=== PATIENT | female | born 1985 | race Caucasian/White ===

== ENCOUNTER 2016-08-30 15:03 | Inpatient (IN) | payer BC ==
[~2016-08-30] VITALS: Ht 177.8 cm; Wt 122.5 kg
[2016-08-30] MEDS: LACTATED RINGER'S 1000 ML INJ 1,000 ML IV SCH (13:04)
[2016-08-30] MEDS ORDERED: LACTATED RINGER'S 1000 ML IV SCH (16:15)
[2016-08-30] MEDS ORDERED: ceFAZolin 2 GM PREMIX 50 ML IV SCH (16:15)
[2016-08-30] MEDS ORDERED: CITRIC ACID-SODIUM CITRATE LIQ 30 ML UDC PO SCH (16:15)
[2016-08-30] MEDS ORDERED: LACTATED RINGER'S 1000 ML IV ONE (16:15)
[2016-08-30 16:20] LABS: AUTOMATED NEUTROPHIL # 6.8 TH/MM3 (1.8-7.7); BASOPHIL % 0.3 % (0.0-2.0); EOSINOPHIL # 0.1 TH/MM3 (0-0.4); EOSINOPHIL % 0.6 % (0.0-4.0); HEMATOCRIT 34.4 % (35.0-46.0); HEMO FLAGS DIFF FINAL; LYMPHOCYTE # 2.1 TH/MM3 (1.0-4.8); MEAN CORPUSCULAR HEMOGLOBIN 29.3 PG (27.0-34.0); MEAN CORPUSCULAR HGB CONC 34.1 % (32.0-36.0); MONO % 6.9 % (0.0-8.0); NEUT % 70.2 % (16.0-70.0); PLATELET COUNT 218 TH/MM3 (150-450); RED BLOOD COUNT 3.99 MIL/MM3 (4.00-5.30); RED CELL DISTRIBUTION WIDTH 15.3 % (11.6-17.2); WHITE BLOOD COUNT 9.7 TH/MM3 (4.0-11.0)
[2016-08-30 16:22] LABS: BACTERIA, URINE RARE /hpf; BLOOD, URINE NEG (NEG); COMMENT (UR) CULT NOT INDICATED; CULTURE IF INDICATED CULT NOT INDICATED; GLUCOSE,URINE NEG (NEG); KETONE, URINE 40 mg/dL (NEG); NITRITE,URINE NEG (NEG); SQUAMOUS EPITHELIAL CELL URINE 1 /hpf (0-5); URINE COLOR YELLOW (YELLW/STRAW)
[2016-08-30] MEDS ORDERED: OXYTOCIN 10 UNIT/ML AMP ONE (16:46)
[2016-08-30] MEDS ORDERED: ACETAMINOPHEN 1000 MG/100 ML VIAL IV ONE (16:46)
[2016-08-30] MEDS ORDERED: SODIUM CHLORIDE 0.9% FLUSH 5 ML FLUSH IV PRN (17:00)
[2016-08-30] MEDS ORDERED: KETOROLAC TROMETHAMINE 60 MG/2 ML (IM) VIAL IM PRN ×2 (17:00→23:00)
[2016-08-30] MEDS ORDERED: ONDANSETRON HCL 4 MG/2 ML VIAL IVP PRN (17:00)
[2016-08-30] MEDS ORDERED: OXYTOCIN 30 UNITS-500ML PREMIX 500 ML IV ONE (17:00)
[2016-08-30] MEDS: ACETAMINOPHEN 1000 MG/100 ML VIAL IV SCH (17:00)
[2016-08-30] MEDS ORDERED: oxyCODONE/ACETAMINOPHEN 5 MG/325 MG TAB PO PRN (17:00)
[2016-08-30] MEDS ORDERED: MEASLES, MUMPS, RUBELLA VACCINE 0.5 ML VIAL SQ ONE (17:00)
[2016-08-30] MEDS ORDERED: MORPHINE SULFATE PF 5 MG/10 ML VIAL ONE (18:03)
[2016-08-30] MEDS ORDERED: ONDANSETRON HCL 4 MG/2 ML VIAL ONE (18:03)
[2016-08-30] MEDS ORDERED: OXYTOCIN 30 UNITS-500ML PREMIX 500 ML IV PRN (18:15)
[2016-08-30] MEDS ORDERED: diphenhydrAMINE HCL 50 MG/ML VIAL ONE (18:17)
[2016-08-30] MEDS ORDERED: OXYTOCIN 30 UNITS-500ML PREMIX 500 ML ONE (19:03)
[2016-08-30] MEDS ORDERED: EPIDURAL-DIPHENHYDRAMINE HCL 50 MG CAP PO PRN (20:00)
[2016-08-30] MEDS ORDERED: EPIDURAL-NALOXONE HCL 0.4 MG/ML AMP IV PRN (20:00)
[2016-08-30] MEDS ORDERED: EPIDURAL-NO SYSTEMIC NARCOTICS XX PRN (20:00)
[2016-08-30] MEDS ORDERED: EPIDURAL-DO NOT ADMINISTER ANTICOAGULANTS XX PRN (20:00)
[2016-08-30] MEDS ORDERED: EPIDURAL-DIPHENHYDRAMINE HCL 50 MG/ML VIAL IV PUSH PRN (20:00)
--- NOTE | 2016-08-30 21:26 | MP ---
cc: AJAY PINEDA M.D. DATE OF SURGERY 08/30/2016 PREOPERATIVE DIAGNOSES 1. at 40-41 weeks. 2. macrosomia. POSTOPERATIVE DIAGNOSES 1. at 40-41 weeks. 2. macrosomia. 3. Occiput posterior. 4. Delivered. PROCEDURE Primary low transverse section. ANESTHESIA Spinal SURGEON Ajay Pineda MD CHOIR MEMBER RAJAT Amador ESTIMATED BLOOD LOSS FOR THE PROCEDURE 600 cc. FLUIDS 2.3 liters crystalloid. OBJECTIVE FINDINGS Following induction of adequate spinal anesthesia, the patient was prepped and draped supine on the operating table, left lateral tilt position in the usual sterile fashion with the bladder being drained via Blackmon catheterization. The abdomen was opened through a Pfannenstiel incision using knife to cut down through the skin to the fascia. The fascia opened transversely, stripped the muscles, rectus muscle split in the midline. Perineum opened sharply with scissors. The bladder flap taken down sharply, retracted with Dorothy blade. The lower uterine segment was incised transversely with a knife, extended with blunt dissection. Revealed clear fluid. The baby was OP position. The head was laterally rotated, the vacuum applied to the occiput and used to lift the head through the abdominal wound. Mouth was suctioned, cord clamped and cut and baby passed to awaiting NB team. A viable, vigorous female. Apgars 8 and 9. weight 7 pounds 11 ounces. Cord blood for typing. The placenta manually removed. Uterine cavity cleaned with laps. Uterus exteriorized and closed in two layers with running suture, first a running locking stitch of Vicryl and the second running imbricating stitch of Vicryl. Posterior inspection revealed the uterus, tubes and ovaries normal. Uterus now placed in cavity. Irrigation performed. No bleeding was evident. The bladder flap was closed with a running stitch of 3-0 Vicryl. All lap structures removed. Counts were correct. The anterior peritoneum closed with a running stitch of 2-0 Vicryl. Fascia closed with running locking stitch of 0 Vicryl corner to midline and tied, subcu with running 3-0 Vicryl and the skin with running subcuticular 3-0 Monocryl. Dermabond applied. All counts were correct and the patient was awake and taken to recovery room in good condition. MD SU Anaya /5:50 PM /9:12 PM MTDMaite
[2016-08-30] MEDS: ZOLPIDEM TARTRATE 5 MG TAB PO PRN (22:47)
[2016-08-31] MEDS: SIMETHICONE 80 MG CHEWABLE TAB PO PRN ×2 (00:18→09:42)
[2016-08-31] MEDS: ACETAMINOPHEN 1000 MG/100 ML VIAL IV SCH ×2 (01:08→09:00)
[2016-08-31] MEDS: LACTATED RINGER'S 1000 ML INJ 1,000 ML IV SCH (01:12)
[2016-08-31] MEDS: oxyCODONE/ACETAMINOPHEN 5 MG/325 MG TAB PO PRN ×4 (01:43→21:33)
[2016-08-31 04:29] LABS: AUTOMATED NEUTROPHIL # 5.7 TH/MM3 (1.8-7.7); BASOPHIL % 0.2 % (0.0-2.0); EOSINOPHIL # 0.1 TH/MM3 (0-0.4); EOSINOPHIL % 0.8 % (0.0-4.0); HEMATOCRIT 28.2 % (35.0-46.0); HEMO FLAGS DIFF FINAL; LYMPH % 22.2 % (9.0-44.0); LYMPHOCYTE # 1.8 TH/MM3 (1.0-4.8); MEAN CELL VOLUME 86.4 FL (80.0-100.0); MEAN CORPUSCULAR HEMOGLOBIN 29.8 PG (27.0-34.0); MEAN CORPUSCULAR HGB CONC 34.5 % (32.0-36.0); MONO % 7.3 % (0.0-8.0); NEUT % 69.5 % (16.0-70.0); PLATELET COUNT 150 TH/MM3 (150-450); RED BLOOD COUNT 3.26 MIL/MM3 (4.00-5.30); RED CELL DISTRIBUTION WIDTH 15.2 % (11.6-17.2); WHITE BLOOD COUNT 8.2 TH/MM3 (4.0-11.0)
[2016-08-31 04:55] LABS: BICARBONATE 21.9 MEQ/L (21.0-32.0); POTASSIUM 3.4 MEQ/L (3.5-5.1)
--- NOTE | 2016-08-31 08:36 | MH ---
cc: AJAY PINEDA DATE OF ADMISSION: 08/30/2016 ADMITTING DIAGNOSIS 1. at 40-41 weeks. 2. macrosomia. HISTORY OF PRESENT ILLNESS The patient is a 31-year-old single white female, para 0-0-1-0, LMP of 11/15/2015, EDC of 08/29/2016 by dates, 08/28/2016 by early ultrasound. Her course has been benign. Ultrasound on the day admission showed EFW over 4000 grams, vertex is high, cervix is closed, and patient is now admitted for primary . PAST MEDICAL HISTORY PREVIOUS SURGERY 1. Laparoscopic cholecystectomy at age 24. 2. LEEP procedure in 2004. 3. 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 MEDICATIONS Vitamins. ALLERGIES None. TRANSFUSIONS None. SOCIAL HISTORY She is single, works in [employer] at [employer]. Alcohol, tobacco and drugs are none. FAMILY HISTORY Noncontributory. PHYSICAL EXAMINATION GENERAL: A well-nourished, well-developed gravid white female. VITAL SIGNS: Stable. HEENT: Exam is normal. CHEST: Clear. HEART: Regular rate. BREASTS: Symmetrical. ABDOMEN: Gravid. EFW about 4200 grams. PELVIC: Cervix is long, thick and closed. Vertex ballottable. EXTREMITIES: 1+ edema. ASSESSMENT As above. PLAN She is now admitted for primary . While in the office I explained the procedure, the risks, benefits and complications and the patient elected to proceed. MD FLORECITA Anaya/ROSA /1:59 PM /8:32 AM
[2016-08-31] MEDS: SODIUM CHLORIDE 0.9% FLUSH 5 ML FLUSH IV SCH ×2 (09:00→21:33)
[2016-08-31] MEDS: KETOROLAC TROMETHAMINE 30 MG/ML (IVP) VIAL IV PUSH PRN ×3 (09:42→21:32)
[2016-08-31] MEDS: DOCUSATE SODIUM 50 MG/SENNA 8.6 MG TAB PO PRN (15:33)
[2016-08-31] MEDS: ZOLPIDEM TARTRATE 5 MG TAB PO PRN (21:36)
[2016-09-01] MEDS: oxyCODONE/ACETAMINOPHEN 5 MG/325 MG TAB PO PRN ×4 (03:05→21:48)
[2016-09-01] MEDS: DOCUSATE SODIUM 50 MG/SENNA 8.6 MG TAB PO PRN ×2 (03:05→15:55)
[2016-09-01] MEDS: IBUPROFEN 600 MG TAB PO PRN ×4 (03:05→21:48)
[2016-09-01] MEDS ORDERED: DIPHTH/TETANUS/ACEL PERTUSSIS (BOOSTER) 0.5 ML VIAL/PFS IM ONE (09:00)
[2016-09-01] MEDS: SIMETHICONE 80 MG CHEWABLE TAB PO PRN (10:02)
[2016-09-01 20:00] VITALS: BP 136/91; PULSE 91; RESP 18; TEMP 97.7
[2016-09-01] MEDS: SODIUM CHLORIDE 0.9% FLUSH 5 ML FLUSH IV SCH (21:00)
[2016-09-01] MEDS: ZOLPIDEM TARTRATE 5 MG TAB PO PRN (21:48)
[2016-09-02] MEDS: oxyCODONE/ACETAMINOPHEN 5 MG/325 MG TAB PO PRN ×2 (03:57→08:20)
[2016-09-02] MEDS: IBUPROFEN 600 MG TAB PO PRN (03:58)
[2016-09-02] MEDS ORDERED: OXYC1TAB63 PO (08:23)
--- NOTE | 2016-09-02 08:23 | HHI.DCPOC ---
Discharge Care Plan Report Symptoms to Your Doctor -Temperate above 100.5 degrees -Redness, of incision or excessive or foul smelling drainage -Unusual pain or calf pain -Increased vaginal bleeding -Painful or difficulty urinating -Feelings of extreme sadness or anxiety after 2 weeks Goals to Promote Your Health * To prevent worsening of your condition and complications * To maintain your health at the optimal level Directions to Meet Your Goals Take your medications as prescribed Follow your dietary instruction Follow activity as directed Ensure plenty of rest for recovery Drink fluids for hydration Keep your appointments as scheduled Take your immunizations and boosters as scheduled If your symptoms worsen call your PCP, if no PCP go to Urgent Care Center or Emergency Room Smoking is Dangerous to Your Health. Avoid second hand smoke Call the 24-hour crisis hotline for domestic abuse at Jhonny Harper MD Sep 02, 2016 08:23
--- NOTE | 2016-09-02 15:04 | MD ---
cc: AJAY PINEDA ADMISSION DATE: 08/30/2016 DISCHARGE DATE: 09/02/2016 ADMISSION DIAGNOSIS 1. at 40/41 weeks. 2. Macrosomia. 3. occiput posterior. POSTOPERATIVE DIAGNOSIS: 1. at 40/41 weeks. 2. Macrosomia. 3. occiput posterior. 4. Delivered. PROCEDURE: Primary low transverse section on 08/30/2016 HISTORY OF PRESENT ILLNESS The patient is 31-year-old, single white female para 0-0-1-0, LMP of 10/2015, EDC of 08/29/2016. Her preop course was benign. Her labs include Rh negative, nonreactive, rubella immune, rubeola immune, HAA negative, the Pap negative, glucose screen was normal. Strep culture was positive. At term the vertex was high EFW of 4000 grams with OP presentation and delivery options discussed and the patient desired section was admitted for same on 08/30/2016, had delivery of a viable vigorous female via with 's were 8 and 9, weight 7 pounds 11 ounces, OP position. Postop did well with gradual advance of diet and activity. Discharged home by physician on 09/02/2016, advised NPV light activity, no driving, return to see me in one week. She is to call for abnormal pain, bleeding, temperature, signs infection, depression. She was given script for Percocet 5, one to two p.o. q.4 h. The #60. MD FLORECITA Anaay/adalid /8:28 AM /3:00 PM
== END 2016-09-02 11:52 | disposition home or self-care (01) | DRG 766 ==
LOC: H2EB 15:03 → H1EA 19:28
PROVIDERS: ADMIT Obstetrics & Gynecology; ATTEND Obstetrics & Gynecology
PROC: 10D00Z1 Extraction of Products of Conception, Low, Open Approach (ICD-10-PCS; principal; 2016-08-30)
DX: O36.63X0 Maternal care for excessive fetal growth, third trimester, not applicable or unspecified (principal); O99.824 Streptococcus B carrier state complicating childbirth; Z37.0 Single live birth; Z3A.40 40 weeks gestation of pregnancy
CPT/HCPCS: 59025; 80048; 81001; 85025; 86850; 86900; 86901; J0131; J0690; J1200; J1885; J2274; J2405; J2590; J7120

== ENCOUNTER 2017-09-23 00:13 | Emergency (ER) | payer BC, OTHER ==
[~2017-09-23] VITALS: Ht 175.3 cm; Wt 127.0 kg
[~2017-09-23 00:13] MED LIST: OXYC1TAB63 PO
[2017-09-23 00:14] VITALS: BP 147/96; PULSE 93; RESP 16; TEMP 97.6; O2SAT 99
[2017-09-23] MEDS ORDERED: NUVAMIS VAGINAL (00:29)
[2017-09-23] MEDS ORDERED: ZANT150T2 PO (00:29)
[2017-09-23] MEDS ORDERED: SODIUM CHLOR 0.9% 1000 ML INJ 1,000 ML IV SCH (00:38)
[2017-09-23] MEDS ORDERED: ONDANSETRON HCL 4 MG/2 ML VIAL IVP ONE (00:45)
[2017-09-23] MEDS ORDERED: SODIUM CHLORIDE 0.9% FLUSH 10 ML FLUSH IV FLUSH PRN (00:45)
[2017-09-23] MEDS ORDERED: MORPHINE SULFATE 4 MG/ML INJ IV PUSH ONE (00:45)
[2017-09-23] MEDS ORDERED: ALUMINUM/MAGNESIUM/SIMETH 30 ML CUP PO ONE (00:45)
[2017-09-23] MEDS ORDERED: LIDOCAINE VISCOUS 2% SOLN 15 ML UDC PO ONE (00:45)
[2017-09-23 00:50] VITALS: RESP 19; O2SAT 100
[2017-09-23] MEDS ORDERED: IOHEXOL 350 MG/ML 10 ML VIAL (for RAD DIAG) IVCONTRAST ONE (01:04)
[2017-09-23 01:11] LABS: AUTOMATED NEUTROPHIL # 5.7 TH/MM3 (1.8-7.7); BASOPHIL # 0.1 TH/MM3 (0-0.2); BASOPHIL % 0.6 % (0.0-2.0); EOSINOPHIL # 0.2 TH/MM3 (0-0.4); EOSINOPHIL % 1.7 % (0.0-4.0); HEMOGLOBIN 14.7 GM/DL (11.6-15.3); LYMPH % 32.3 % (9.0-44.0); LYMPHOCYTE # 3.2 TH/MM3 (1.0-4.8); MEAN CELL VOLUME 86.2 FL (80.0-100.0); MEAN CORPUSCULAR HEMOGLOBIN 30.2 PG (27.0-34.0); MEAN PLATELET VOLUME 8.1 FL (7.0-11.0); MONO % 7.9 % (0.0-8.0); MONOCYTE # 0.8 TH/MM3 (0-0.9); NEUT % 57.5 % (16.0-70.0); PLATELET COUNT 273 TH/MM3 (150-450); RED BLOOD COUNT 4.87 MIL/MM3 (4.00-5.30); RED CELL DISTRIBUTION WIDTH 13.4 % (11.6-17.2); WHITE BLOOD COUNT 9.9 TH/MM3 (4.0-11.0)
[2017-09-23 01:18] LABS: ALBUMIN 3.8 GM/DL (3.4-5.0); ALT (GPT) 25 U/L (10-53); AST (GOT) 18 U/L (15-37); BICARBONATE 25.6 MEQ/L (21.0-32.0); BLOOD UREA NITROGEN 11 MG/DL (7-18); CHLORIDE 107 MEQ/L (98-107); CREATININE 0.77 MG/DL (0.50-1.00); GLOMERULAR FILTRATION RATE 86 ML/MIN (>89); GLUCOSE,RANDOM 100 MG/DL (74-106); LIPASE 131 U/L (73-393); SODIUM (NA) 138 MEQ/L (136-145)
[2017-09-23 01:20] LABS: ALKALINE PHOSPHATASE 47 U/L (45-117); TOTAL BILIRUBIN ADULT 0.4 MG/DL (0.2-1.0); TOTAL PROTEIN 7.8 GM/DL (6.4-8.2)
--- NOTE | 2017-09-23 01:24 | RADRPT ---
EXAM DATE/TIME: 09/23/2017 01:03 [facility] COMPARISON: No previous studies available for comparison. INDICATIONS : Abdomen pain. IV CONTRAST: 75 cc Omnipaque 350 (iohexol) IV ORAL CONTRAST: No oral contrast ingested. RADIATION DOSE: 22.45 CTDIvol (mGy) MEDICAL HISTORY : None SURGICAL HISTORY : Colostomy. ENCOUNTER: Initial ACUITY: 1 day PAIN SCALE: 5/10 LOCATION: Bilateral abdomen TECHNIQUE: Volumetric scanning of the abdomen and pelvis was performed. Using automated exposure control and ad justment of the mA and/or kV according to patient size, radiation dose was kept as low as reasonably achievable to obtain optimal diagnostic quality images. DICOM format image data is available electro nically for review and comparison. FINDINGS: LOWER LUNGS: The visualized lower lungs are clear. LIVER: Homogeneous density without lesion. There is no dilation of the biliary tree. The patient is status post cholecystectomy. SPLEEN: Normal size without lesion. PANCREAS: Within normal limits. KIDNEYS: Normal in size and shape. There is no mass, stone or hydronephrosis. ADRENAL GLANDS: Within normal limits. VASCULAR: There is no aortic aneurysm. BOWEL/MESENTERY: There are a few scattered colonic diverticula without inflammatory change. The appendix appears aly l. Dilated bowel is not seen. ABDOMINAL WALL: Within normal limits. RETROPERITONEUM: There is no lymphadenopathy. BLADDER: No wall thickening or mass. REPRODUCTIVE: Within normal limits. There is a pessary type ring structure in the vagina. INGUINAL: There is no lymphadenopathy or hernia. MUSCULOSKELETAL: Within normal limits for patient age. CONCLUSION: Negative CT of the abdomen and pelvis. Jhonny Villar MD on September 23, 2017 at 1:18 Board Certified Radiologist. This report was verified electronically.
--- NOTE | 2017-09-23 01:51 | PD ---
HPI Chief Complaint: Abdominal Pain Time Seen by Provider: 00:37 Travel History International Travel<30 days: No Contact w/Intl Traveler<30days: No Traveled to known affect area: No History of Present Illness HPI 32-year-old female complains of pain in the right side for about 8 hours or so. Nausea and diarrhea reported. No similar prior episodes. Severity moderate. Modifying factor. Last menstruation was 1 month prior. No abnormal vaginal discharge or bleeding. Zantac did not help. PFSH Past Medical History GERD: Yes Tetanus Vaccination: Unknown Influenza Vaccination: No ?: Not LMP: 08/21/17 : 2 Para: 1 : 1 Dilation and Curettage (D&C): Yes Past Surgical History Section: Yes Cholecystectomy: Yes Social History Alcohol Use: Yes (2 vodka drinks daily) Tobacco Use: No Substance Use: No Allergies-Medications (Allergen,Severity, Reaction): Coded Allergies: No Known Allergies (Verified , 06/17/05) Reported Meds & Prescriptions Reported Meds & Active Scripts Active Reported Nuvaring Vaginal Insert (Etonogestrel-Ethinyl Estradiol Vaginal Insert) 0.120- 0.015 Mg/24 Hr Vagring 1 Applic VAGINAL DIRECTED Zantac (Ranitidine HCl) 150 Mg Tab 150 Mg PO BID Review of Systems Except as stated in HPI: all other systems reviewed are Neg General / Constitutional: No: Fever Physical Exam Narrative GENERAL: 32-year-old female mild distress secondary to pain SKIN: Warm and dry. HEAD: Atraumatic. Normocephalic. EYES: Pupils equal and round. No scleral icterus. No injection or drainage. ENT: No nasal bleeding or discharge. Mucous membranes pink and moist. NECK: Trachea midline. No JVD. CARDIOVASCULAR: Regular rate and rhythm. RESPIRATORY: No accessory muscle use. Clear to auscultation. Breath sounds equal bilaterally. GASTROINTESTINAL: Soft. Minimal tenderness in the right lower quadrant. MUSCULOSKELETAL: Extremities without clubbing, cyanosis, or edema. No obvious deformities. NEUROLOGICAL: Awake and alert. No obvious cranial nerve deficits. Motor grossly within normal limits. Five out of 5 muscle strength in the arms and legs. Normal speech. PSYCHIATRIC: Appropriate mood and affect; insight and judgment normal. Data Data Last Documented VS Vital Signs Date Time Temp Pulse Resp B/P (MAP) Pulse Ox O2 Delivery O2 Flow Rate FiO2 09/23/17 04:52 09/23/17 00:50 19 100 Room Air 09/23/17 00:14 97.6 93 Orders Orders Complete Blood Count With Diff (09/23/17 00:38) Comprehensive Metabolic Panel (09/23/17 00:38) Lipase (09/23/17 00:38) Lactic Acid (09/23/17 00:38) Urinalysis - C+S If Indicated (09/23/17 00:38) Ct Abd/Pel W Iv Contrast(Rout) (09/23/17 00:38) Iv Access Insert/Monitor (09/23/17 00:38) Ecg Monitoring (09/23/17 00:38) Oximetry (09/23/17 00:38) Morphine Inj (Morphine Inj) (09/23/17 00:45) Ondansetron Inj (Zofran Inj) (09/23/17 00:45) Sodium Chlor 0.9% 1000 Ml Inj (Ns 1000 M (09/23/17 00:38) Sodium Chloride 0.9% Flush (Ns Flush) (09/23/17 00:45) Al-Mag Hy-Si 40-40-4 Mg/Ml Liq (Mag-Al P (09/23/17 00:45) Lidocaine 2% Viscous (Xylocaine 2% Visco (09/23/17 00:45) Ed Urine Pregnancytest Poc (09/23/17 00:38) Iohexol 350 Inj (Omnipaque 350 Inj) (09/23/17 01:04) Nitroglycerin Sl (Nitrostat Sl) (09/23/17 02:00) Metoprolol Tartrate Inj (Lopressor Inj) (09/23/17 02:00) Clopidogrel (Plavix) (09/23/17 02:00) Hydromorphone Pf Inj (Dilaudid Pf Inj) (09/23/17 02:00) Us Pelvis Comp W Dop Transvag (09/23/17 ) Ketorolac Inj (Toradol Inj) (09/23/17 04:00) Ed Discharge Order (09/23/17 04:44) Labs Laboratory Tests Test 09/23/17 00:50 09/23/17 01:40 White Blood Count 9.9 TH/MM3 Red Blood Count 4.87 MIL/MM3 Hemoglobin 14.7 GM/DL Hematocrit 42.0 % Mean Corpuscular Volume 86.2 FL Mean Corpuscular Hemoglobin 30.2 PG Mean Corpuscular Hemoglobin Concent 35.0 % Red Cell Distribution Width 13.4 % Platelet Count 273 TH/MM3 Mean Platelet Volume 8.1 FL Neutrophils (%) (Auto) 57.5 % Lymphocytes (%) (Auto) 32.3 % Monocytes (%) (Auto) 7.9 % Eosinophils (%) (Auto) 1.7 % Basophils (%) (Auto) 0.6 % Neutrophils # (Auto) 5.7 TH/MM3 Lymphocytes # (Auto) 3.2 TH/MM3 Monocytes # (Auto) 0.8 TH/MM3 Eosinophils # (Auto) 0.2 TH/MM3 Basophils # (Auto) 0.1 TH/MM3 CBC Comment DIFF FINAL Differential Comment Blood Urea Nitrogen 11 MG/DL Creatinine 0.77 MG/DL Random Glucose 100 MG/DL Total Protein 7.8 GM/DL Albumin 3.8 GM/DL Calcium Level 9.0 MG/DL Alkaline Phosphatase 47 U/L Aspartate Amino Transf (AST/SGOT) 18 U/L Alanine Aminotransferase (ALT/SGPT) 25 U/L Total Bilirubin 0.4 MG/DL Sodium Level 138 MEQ/L Potassium Level 4.1 MEQ/L Chloride Level 107 MEQ/L Carbon Dioxide Level 25.6 MEQ/L Anion Gap 5 MEQ/L Estimat Glomerular Filtration Rate 86 ML/MIN Lactic Acid Level 1.3 mmol/L Lipase 131 U/L Urine Color YELLOW Urine Turbidity CLEAR Urine pH 6.5 Urine Specific [place] 1.037 Urine Protein NEG mg/dL Urine Glucose (UA) NEG mg/dL Urine Ketones NEG mg/dL Urine Occult Blood NEG Urine Nitrite NEG Urine Bilirubin NEG Urine Urobilinogen LESS THAN 2.0 MG/DL Urine Leukocyte Esterase NEG Urine WBC LESS THAN 1 /hpf Urine Squamous Epithelial Cells <1 /hpf Microscopic Urinalysis Comment CULT NOT INDICATED MDM Medical Decision Making Medical Screen Exam Complete: Yes Emergency Medical Condition: Yes Medical Record Reviewed: Yes Differential Diagnosis Constipation, Gastritis, Acute Cholecystitis, Biliary Colic, Pancreatitis, HOWARD , Hepatitis, Bowel Obstruction, Cystitis, Mesenteric Ischemia, AAA, Appendicitis , Renal Stone/Hydronephrosis, GERD, perforated viscous Narrative Course CBC & BMP Diagram 09/23/17 00:50 Total Protein 7.8, Albumin 3.8, Calcium Level 9.0, Alkaline Phosphatase 47, Aspartate Amino Transf (AST/SGOT) 18, Alanine Aminotransferase (ALT/SGPT) 25, Total Bilirubin 0.4 Last Impressions Abdomen/Pelvis CT 09/23/17 0038 Signed Impressions: Service Date/Time: Saturday, September 23, 2017 01:03 - CONCLUSION: Negative CT of the abdomen and pelvis. Jhonny Villar MD Abdomen/Pelvis/Transvag US 09/23/17 0000 Signed Impressions: Service Date/Time: Saturday, September 23, 2017 03:12 - CONCLUSION: 1. Oval smooth hypoechoic area representing a nabothian cyst or post procedure change. It does not appear suspicious. 2. The right ovary appears normal. 3. The left ovary is not seen. A left adnexal mass is not seen. Jhonny Villar MD Patient reports persistent pain after milligram of Dilaudid here and she reports she is going to go to an outside hospital but came here instead. This raises some concern for aberrant opioid conduct especially with a normal workup. Diagnosis Primary Impression: Abdominal pain Qualified Codes: R10.9 - Unspecified abdominal pain Med/Other Pt SpecificInfo: No Change to Meds Disposition: DISCHARGE HOME Condition: Stable Kelechi Hicks MD Sep 23, 2017 01:51
[2017-09-23] MEDS ORDERED: HYDROmorphone HCL PF 2 MG/ML VIAL IV PUSH ONE (02:00)
[2017-09-23] MEDS ORDERED: NITROGLYCERIN 0.4 MG SL 25 TABS/BTL SL SCH (02:00)
[2017-09-23] MEDS ORDERED: METOPROLOL TARTRATE 5 MG/5 ML VIAL IVS SCH (02:00)
[2017-09-23] MEDS ORDERED: CLOPIDOGREL 75 MG TAB PO ONE (02:00)
[2017-09-23 02:17] LABS: BILIRUBIN, URINE NEG (NEG); BLOOD, URINE NEG (NEG); GLUCOSE,URINE NEG (NEG); KETONE, URINE NEG (NEG); NITRITE,URINE NEG (NEG); PH, URINE 6.5 (5.0-8.5); SQUAMOUS EPITHELIAL CELL URINE <1 /hpf (0-5); URINE COLOR YELLOW (YELLW/STRAW); URINE LEUKOCYTE ESTERASE NEG (NEG)
[2017-09-23] MEDS ORDERED: KETOROLAC TROMETHAMINE 30 MG/ML (IVP) VIAL IV PUSH ONE (04:00)
--- NOTE | 2017-09-23 04:17 | RADRPT ---
EXAM DATE/TIME: 09/23/2017 03:12 [facility] COMPARISON: CT ABDOMEN & PELVIS W CONTRAST, September 23, 2017, 1:03. INDICATIONS : Pelvic pain. MEDICAL HISTORY : Gastroesophageal reflux disease. . x 1. SURGICAL HISTORY : Cholecystectomy. section. LEEP. Cryosurgery to cervix. Left ankle repair. Dilation and cur ettage. ENCOUNTER: Initial ACUITY: 1 day PAIN SCORE: 6/10 LOCATION: Bilateral pelvis MEASUREMENTS: UTERUS: 7.4 x 4.8 x 3.5 cm ENDOMETRIAL STRIPE: 4 mm RIGHT OVARY: 2.2 x 1.5 x 1.4 cm LEFT OVARY: Non visualized. FINDINGS: UTERUS: There is a 0.7 cm oval hypoechoic area seen at the cervix. This could be related to a nabothian cyst although it does not demonstrate increased through transmission. Post procedure change could have a s imilar appearance as the patient has had prior procedure at the cervix. On the CT examination, there is a ringlike structure seen in the region of the cervix which could potentially be postsurgical. The endometrium is normal. No uterine masses are seen. RIGHT OVARY: Ovary contains no mass or significant cystic lesion. The right ovary appears normal. LEFT OVARY: The left ovary is not seen. MISCELLANEOUS: No free fluid. CONCLUSION: 1. Oval smooth hypoechoic area representing a nabothian cyst or post procedure change. It does not ap pear suspicious. 2. The right ovary appears normal. 3. The left ovary is not seen. A left adnexal mass is not seen. Jhonny Villar MD on September 23, 2017 at 4:09 Board Certified Radiologist. This report was verified electronically.
== END 2017-09-23 05:00 | disposition home or self-care (01) ==
LOC: NEPC 00:13
DX: R10.2 Pelvic and perineal pain (principal); R19.7 Diarrhea, unspecified; R11.0 Nausea
CPT/HCPCS: 74177; 76830; 76856; 80053; 81001; 83605; 83690; 84703; 85025; 93975; 96361; 96374; 96375; 99285; J1170; J1885; J2270; J2405; J7030; Q9967